=== PATIENT | male | born 1975 | race American Indian/Alaskan Native ===

== ENCOUNTER 2018-12-08 22:44 | Emergency (ER) | payer SELFPAY ==
[2018-12-09] MEDS ORDERED: PERCOCET 5/325 PO ONE (00:13)
[2018-12-09] MEDS ORDERED: ZOFRAN ODT PO ONE (00:13)
[2018-12-09] MEDS ORDERED: FLEXERIL PO ONE (00:25)
--- NOTE | 2018-12-09 00:26 | XRay Report ---
PROCEDURE: XR CHEST ROUTINE 2V TECHNIQUE: PA and lateral chest radiographs were obtained. HISTORY: right upper back chest pain COMPARISONS: None. FINDINGS: Heart: Normal. Mediastinum/Vessels: Normal. Lungs/Pleural space: Normal. Bony thorax: No acute osseous abnormality. IMPRESSION: Normal examination. This document is electronically signed by Vickie Faustin DO., December 09 2018 12:24:50 AM ET
--- NOTE | 2018-12-09 00:58 | Emergency Department Report ---
ED General Adult HPI - General Chief complaint: Chest Pain Stated complaint: RT SIDE PAIN/CHEST PAIN Time Seen by Provider: 12/08/18 23:30 Source: patient Mode of arrival: Ambulatory Limitations: No Limitations - History of Present Illness Initial comments: Patient is a 42-year-old -[place] male with no past medical history presents to the ED with complaint of acute onset of persistent severe right shoulder pain, posterior mid thoracic area swollen and painful cyst on the shoulder blade with numbness and tingling of right arm for the last 1 week, worse in the last 2 days. 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 Patient denies traumatic injury, fever, chills, nausea, vomiting, chest pain, shortness of breath, neck pain, dizziness, headache, or fall. MD Complaint: right shoulder pain; lipomatous mass on shoulder blade -: Gradual, week(s) (1) Location: back, upper extremity (right shoulder) Radiation: extremity (right arm) Severity scale (0 -10): 8 Quality: aching, sharp Consistency: constant Improves with: none Worsens with: movement Associated Symptoms: denies: confusion, chest pain, cough, diaphoresis, fever/chills, headaches, loss of appetite, malaise, seizure, shortness of breath, syncope, weakness Treatments Prior to Arrival: NSAID - Related Data Previous Rx's Medication Instructions Recorded Last Taken Type Baclofen 20 mg PO Q8H PRN #21 tablet 12/09/18 Unknown Rx Gabapentin [Neurontin] 300 mg PO BID #30 cap 12/09/18 Unknown Rx Ibuprofen [Motrin] 800 mg PO Q8HR PRN #30 tablet 12/09/18 Unknown Rx predniSONE [Deltasone] 60 mg PO QDAY #15 tab 12/09/18 Unknown Rx Allergies Allergy/AdvReac Type Severity Reaction Status Date / Time aspirin Allergy Hives Verified 12/08/18 23:03 ED Review of Systems ROS: Stated complaint: RT SIDE PAIN/CHEST PAIN Other details as noted in HPI Comment: All other systems reviewed and negative Constitutional: denies: chills, fever Eyes: denies: eye pain, eye discharge, vision change ENT: denies: ear pain, throat pain Respiratory: denies: cough, shortness of breath, wheezing Cardiovascular: denies: chest pain, palpitations Endocrine: no symptoms reported Gastrointestinal: denies: abdominal pain, nausea, diarrhea Genitourinary: denies: urgency, dysuria Musculoskeletal: back pain (posterior mid thoracic pain with a swollen mass), arthralgia (Right shoulder pain). denies: joint swelling Skin: other (Swollen painful fluctuant mass on posterior right shoulder blade). denies: rash, lesions Neurological: denies: headache, weakness, paresthesias Psychiatric: denies: anxiety, depression Hematological/Lymphatic: denies: easy bleeding, easy bruising ED Past Medical Hx - Past Medical History Previous Medical History?: No - Surgical History Past Surgical History?: Yes Additional Surgical History: Right upper back Lumpectomy (grew back) - Social History Smoking Status: Current Every Day Smoker Substance Use Type: Alcohol - Medications Home Medications: Home Medications Medication Instructions Recorded Confirmed Last Taken Type Baclofen 20 mg PO Q8H PRN #21 tablet 12/09/18 Unknown Rx Gabapentin [Neurontin] 300 mg PO BID #30 cap 12/09/18 Unknown Rx Ibuprofen [Motrin] 800 mg PO Q8HR PRN #30 tablet 12/09/18 Unknown Rx predniSONE [Deltasone] 60 mg PO QDAY #15 tab 12/09/18 Unknown Rx ED Physical Exam - General Limitations: No Limitations General appearance: alert, in no apparent distress - Head Head exam: Present: atraumatic, normocephalic, normal inspection - Eye Eye exam: Present: normal appearance, PERRL, EOMI. Absent: scleral icterus, conjunctival injection, periorbital swelling, periorbital tenderness - ENT ENT exam: Present: normal exam, normal orophraynx, mucous membranes moist, TM's normal bilaterally, normal external ear exam - Neck Neck exam: Present: normal inspection, full ROM. Absent: tenderness, meningismus, lymphadenopathy, thyromegaly - Respiratory Respiratory exam: Present: normal lung sounds bilaterally. Absent: respiratory distress, wheezes, rhonchi, chest wall tenderness - Cardiovascular Cardiovascular Exam: Present: regular rate, normal rhythm, normal heart sounds. Absent: systolic murmur, diastolic murmur, rubs, gallop - GI/Abdominal GI/Abdominal exam: Present: soft, normal bowel sounds. Absent: tenderness, guarding, rebound, hyperactive bowel sounds, hypoactive bowel sounds, organomegaly - Rectal Rectal exam: Present: deferred - Extremities Exam Extremities exam: Present: normal inspection, tenderness (right shoulder), normal capillary refill. Absent: full ROM (due to pain in right shoulder posteriorly) - Back Exam Back exam: Present: normal inspection, full ROM, tenderness (Posterior right mid thoracic area on right shoulder blade due to a swollen fluctuant mass), muscle spasm, paraspinal tenderness. Absent: CVA tenderness (L) - Neurological Exam Neurological exam: Present: alert, oriented X3 - Psychiatric Psychiatric exam: Present: anxious, flat affect - Skin Skin exam: Present: warm, dry, intact, normal color, other (Swollen tender fluctuant large lipomatous mass on posterior right shoulder blade). Absent: rash ED Course Vital Signs 12/08/18 23:25 Temperature 97.6 F Pulse Rate 70 Respiratory 20 Rate Blood Pressure 148/88 [Left] O2 Sat by Pulse 100 Oximetry - Reevaluation(s) Reevaluation #1: 12/09/18 01:01 Patient is alert and oriented 3 and is not in distress. The patient was t reated for pain in the ED. the EKG showed sinus arrhythmia with a right bundle- branch block. Chest x-ray shows no acute cardiopulmonary abnormalities. This results were reviewed and are unremarkable including troponin levels. Patient's symptoms appear to arise from cervical radiculopathy and complicated by the lipomatous mass on the posterior right shoulder blade. Patient was discharged home on pain medications and given a referral to the general surgeon information assistant Dr. Luque for further evaluation and treatment of the lipomatous mass. Patient advised to return to the ED immediately if symptoms get worse. Patient was otherwise advised to consider following up also with [facility] as previously scheduled. 12/09/18 02:28 ED Medical Decision Making - Lab Data Result diagrams: 12/09/18 01:09 12/09/18 01:09 - EKG Data Interpretation: nonspecific ST-T wave zaynab 12/09/18 02:Sinus Arrhythmia with RBB - Radiology Data Radiology results: report reviewed, image reviewed Chest x-ray shows no acute cardiopulmonary abnormalities - Medical Decision Making Patient is alert and oriented 3 and is not in distress. The patient was treated for pain in the ED. the EKG showed sinus arrhythmia with a right bundle- branch block. Chest x-ray shows no acute cardiopulmonary abnormalities. This results were reviewed and are unremarkable including troponin levels. Patient's symptoms appear to arise from cervical radiculopathy and complicated by the lipomatous mass on the posterior right shoulder blade. Patient was discharged home on pain medications and given a referral to the general surgeon information assistant Dr. Luque for further evaluation and treatment of the lipomatous mass. Patient advised to return to the ED immediately if symptoms get worse. Patient was otherwise advised to consider following up also with [facility] as previously scheduled. - Differential Diagnosis Right shoulder pain; Lipoma; Cervical radiculopathy Critical care attestation.: If time is entered above; I have spent that time in minutes in the direct care of this critically ill patient, excluding procedure time. ED Disposition Clinical Impression: Lipoma of right shoulder, Cervical radiculopathy Right shoulder pain Qualifiers: Chronicity: acute Qualified Code(s): M25.511 - Pain in right shoulder Disposition: - TO HOME OR SELFCARE Is pt being admited?: No Does the pt Need Aspirin: No Condition: Stable Instructions: Shoulder Sprain (ED), Lipoma (ED), Cervical Radiculopathy (ED) Additional Instructions: Take medications with food, drink plenty of fluids and follow-up with Dr. Luque, the General Surgeon information assistant as advised. Consider follow-up with the [facility] as previously scheduled Prescriptions: Baclofen 20 mg PO Q8H PRN #21 tablet PRN Reason: Spasms predniSONE [Deltasone] 60 mg PO QDAY #15 tab Ibuprofen [Motrin] 800 mg PO Q8HR PRN #30 tablet PRN Reason: Pain , Severe (7-10) Gabapentin [Neurontin] 300 mg PO BID #30 cap Referrals: ROMELIA LUQUE MD [Staff Physician] - 3-5 Days Forms: Work/School Release Form(ED) Time of Disposition: 02:25 Print Language: GREENLANDIC
[2018-12-09 01:24] LABS: Basophils % (Auto) 0.8 % (0.0-1.8); Eosinophils # (Auto) 0.1 K/mm3 (0.0-0.4); Eosinophils % (Auto) 1.6 % (0.0-4.3); Hematocrit 41.3 % (35.5-45.6); Hemoglobin 14.2 gm/dl (11.8-15.2); Lymphocytes # (Auto) 2.4 K/mm3 (1.2-5.4); Lymphocytes % (Auto) 41.5 % (13.4-35.0); Mean Corpuscular HGB Conc 34 % (32-34); Mean Corpuscular Volume 88 fl (84-94); Monocytes # (Auto) 0.4 K/mm3 (0.0-0.8); Monocytes % (Auto) 6.4 % (0.0-7.3); Platelet Count 209 K/mm3 (140-440); Red Blood Count 4.67 M/mm3 (3.65-5.03); Red Cell Distribution Width 13.3 % (13.2-15.2)
[2018-12-09 02:13] LABS: Alanine Aminotransferase 12 units/L (7-56); Albumin 4.3 g/dL (3.9-5); BUN/Creatinine Ratio 15; Blood Urea Nitrogen 12 mg/dL (9-20); Calcium 9.4 mg/dL (8.4-10.2); Hemolysis Index 6
[2018-12-09 03:04] VITALS: BP 109/73
== END 2018-12-09 03:04 | disposition home or self-care (01) ==
LOC: ED 22:44
DX: D17.21 Benign lipomatous neoplasm of skin and subcutaneous tissue of right arm (principal); M25.511 Pain in right shoulder; M54.12 Radiculopathy, cervical region; F17.200 Nicotine dependence, unspecified, uncomplicated; Z88.6 Allergy status to analgesic agent
CPT/HCPCS: 36415; 71046; 80053; 84484; 85025; 93005; 93010; 99284; Q0162